=== PATIENT | female | born 1930 | race Caucasian/White ===

== ENCOUNTER 2017-04-04 13:10 | Emergency (ER) | payer MEDICARE, OTHER ==
[~2017-04-04] VITALS: Ht 152.4 cm; Wt 60.0 kg
[~2017-04-04 13:10] MED LIST: DEPO-MEDROL40 MG/ML IJ; FLOVENT DISK100 MCG IN; FLUARIX QUADRIV1 IN1 IM; FLUARIX QUADRIV1 INJ IM; FLUZONE SPLT1 M1 IM; HYDROCORTISONE EX; INFANRIX IM; MAXZIDE1 TAB PO; MEDDOSEPAK PO; QVAR40 MCG IN; VERAPAMIL120 M1 PO; VERAPAMIL240 M1 PO; [UNRECOGNIZED DRUG - OTHER]
[2017-04-04] MEDS ORDERED: VERAPAMIL240 M1 PO (13:41)
[2017-04-04] MEDS ORDERED: KEFLEX500 MG PO (14:34)
[2017-04-04] MEDS ORDERED: TRAMADOL HYDROC50 MG PO (14:35)
[2017-04-04 14:53] VITALS: BP 149/67
== END 2017-04-04 14:53 | disposition home or self-care (01) ==
LOC: ED 13:10
PROC: 0HQNXZZ Repair Left Foot Skin, External Approach (ICD-10-PCS; principal; 2017-04-04)
DX: S92.422A Displaced fracture of distal phalanx of left great toe, initial encounter for closed fracture (principal); S91.212A Laceration without foreign body of left great toe with damage to nail, initial encounter; W22.8XXA Striking against or struck by other objects, initial encounter; Y93.89 Activity, other specified; Y92.009 Unspecified place in unspecified non-institutional (private) residence as the place of occurrence of the external cause

== ENCOUNTER 2017-04-11 09:20 | Emergency (ER) | payer MEDICARE, OTHER ==
[~2017-04-11] VITALS: Ht 152.4 cm; Wt 56.1 kg
[~2017-04-11 09:20] MED LIST changes: +KEFLEX500 MG PO; +TRAMADOL HYDROC50 MG PO
[2017-04-11 09:43] VITALS: BP 157/63
== END 2017-04-11 10:00 | disposition home or self-care (01) ==
LOC: ED 09:20
DX: S91.112D Laceration without foreign body of left great toe without damage to nail, subsequent encounter (principal); X58.XXXD Exposure to other specified factors, subsequent encounter